=== PATIENT | female | born 2000 | race Hispanic/Latino ===

== ENCOUNTER 2020-04-26 22:57 | Outpatient (CLI) | payer MEDICAID ==
[2020-04-26 23:14] VITALS: BP 119/76
== END 2020-04-27 00:05 | disposition home or self-care (01) ==
LOC: TRG 22:57 → APU 23:04 → TRG 04-27 00:05
PROVIDERS: ATTEND Obstetrics & Gynecology
DX: Z34.83 Encounter for supervision of other normal pregnancy, third trimester (principal); Z3A.27 27 weeks gestation of pregnancy
CPT/HCPCS: 59025

== ENCOUNTER 2020-07-13 18:27 | Outpatient (CLI) | payer MEDICAID ==
[2020-07-13 19:03] VITALS: BP 128/74
== END 2020-07-13 22:22 | disposition home or self-care (01) ==
LOC: TRG 18:27 → APU 18:28 → TRG 22:22
PROVIDERS: ATTEND Obstetrics & Gynecology
DX: O47.1 False labor at or after 37 completed weeks of gestation (principal); Z3A.39 39 weeks gestation of pregnancy
CPT/HCPCS: 59025

== ENCOUNTER 2020-07-18 08:31 | Inpatient (IN) | payer MEDICAID ==
[2020-07-18] MEDS ORDERED: fentaNYL 100 MCG/2 ML INJ IV PRN (09:32)
[2020-07-18] MEDS ORDERED: BUTORPHANOL 2 MG/1 ML INJ IV PRN (09:32)
[2020-07-18] MEDS ORDERED: miSOPROStol 200 MCG TAB PR PRN (09:32)
[2020-07-18] MEDS ORDERED: MINERAL OIL 30 ML ORAL LIQD PO PRN (09:32)
[2020-07-18] MEDS ORDERED: ONDANSETRON 4 MG/2 ML INJ IV PRN ×2 (09:32→17:32)
[2020-07-18] MEDS ORDERED: ePHEDrine SULFATE 50 MG/1 ML INJ IV PRN (09:32)
[2020-07-18] MEDS ORDERED: NALOXONE 0.4 MG/1 ML INJ IV PRN (09:32)
[2020-07-18] MEDS ORDERED: ACETAMINOPHEN 325 MG TAB PO PRN (09:32)
[2020-07-18] MEDS ORDERED: METHYLERGONOVINE MALEATE 0.2 MG/ML VIAL IM PRN (09:32)
[2020-07-18] MEDS ORDERED: TERBUTALINE 1 MG/1 ML INJ SUB-Q PRN (09:32)
[2020-07-18] MEDS ORDERED: LACTATED RINGERS 1,000 ML IV SCH (09:45)
[2020-07-18] MEDS ORDERED: LIDOCAINE (2%) 20 MG/1 ML VIAL 20 ML MDV INFILTRATI ONE ×2 (10:00→13:46)
[2020-07-18] MEDS ORDERED: OXYTOCIN DRIP 30 UNITS/500 ML BAG IV SCH ×3 (10:00→17:32)
[2020-07-18 11:46] LABS: Hematocrit 37.4 % (30.3-42.9); Hemoglobin 12.7 gm/dl (10.1-14.3); Mean Corpuscular HGB Conc 34 % (30-34); Mean Corpuscular Volume 88 fl (79-97); Platelet Count 286 K/mm3 (140-440); Red Blood Count 4.27 M/mm3 (3.65-5.03); Red Cell Distribution Width 14.8 % (13.2-15.2)
[2020-07-18] MEDS ORDERED: KETOROLAC 30 MG/1 ML INJ IV ONE ×2 (13:00→14:00)
--- NOTE | 2020-07-18 13:12 | History and Physical Report ---
History of Present Illness Date of examination: 07/18/20 Date of admission: 07/18/20 09:06 Chief complaint: contractions History of present illness: 20 year old primigravida REUBEN 07/20/20 at 38w5d who presents with regular painful contractions and cervical dilation of 5 cm. She denies leakage of fluid or vaginal bleeding. She has had care at [facility] since 14 wks complicated by obesity, glucose intolerance with a normal 3 hr GTT, and chlamydia treated with a negative test of cure. She is GBS negative. Past History Past Medical History: no pertinent history Past Surgical History: other (Ear tubes ) OTHER SPORTS OFFICIAL History: chlamydia (treated with negative test of cure ) Family/Genetic History: diabetes, stroke, cancer Social history: no significant social history - Obstetrical History Expected Date of Delivery: 07/20/20 Actual Gestation: 39 Week(s) 5 Day(s) : 1 Medications and Allergies Allergies Allergy/AdvReac Type Severity Reaction Status Date / Time No Known Allergies Allergy Unverified 04/26/20 23:25 Active Meds: Active Medications Acetaminophen (Tylenol) 650 mg PO Q4H PRN PRN Reason: Pain, Mild (1-3) Butorphanol Tartrate (Stadol) 2 mg IV Q2H PRN PRN Reason: Pain , Severe (7-10) Ephedrine Sulfate (Ephedrine Sulfate) 10 mg IV Q2M PRN PRN Reason: Hypotension Fentanyl (Sublimaze) 100 mcg IV Q2H PRN PRN Reason: Pain,Severe (7-10) LABOR PAIN Last Admin: 07/18/20 12:33 Dose: 100 mcg Documented by: Oxytocin/Sodium Chloride (Pitocin/Ns 30 Unit/500ml) 30 units in 500 mls @ 2 mls/hr IV TITR JULIA; Protocol Lactated Ringer's (Lactated Ringers) 1,000 mls @ 125 mls/hr IV DIRECT JULIA Oxytocin/Sodium Chloride (Pitocin/Ns 30 Unit/500ml) 30 units in 500 mls @ 40 mls/hr IV TITR JULIA; Protocol Methylergonovine Maleate (Methergine) 0.2 mg IM ONCE PRN PRN Reason: Uterine Bleeding Mineral Oil (Mineral Oil) 30 ml PO QHS PRN PRN Reason: Constipation Misoprostol (Cytotec) 800 mcg OR ONCE PRN PRN Reason: Uterine Bleeding Naloxone HCl (Naloxone) 0.1 mg IV Q2MIN PRN PRN Reason: Res Rate </= 8 or 02 SAT < 92% Ondansetron HCl (Zofran) 4 mg IV Q8H PRN PRN Reason: Nausea And Vomiting Terbutaline Sulfate (Brethine) 0.25 mg SUB-Q ONCE PRN PRN Reason: Hyperstimulation/Hypertonicity Review of Systems All systems: negative - Vital Signs Vital signs: Vital Signs Temp Resp BP 98.6 F 18 134/85 07/18/20 11:02 07/18/20 11:02 07/18/20 11:02 Temp Pulse Resp BP Pulse Ox 98.6 F 88 18 134/85 07/18/20 11:02 07/18/20 11:24 07/18/20 12:33 07/18/20 11:24 - Physical Exam Breasts: Positive: deferred Abdomen: Positive: soft (obese, gravid ) Uterus: Positive: enlarged (gravid ) Extremities: Positive: normal - Obstetrical FHR: auscultation normal Uterine Contraction Monitor Mode: External Cervical Dilatation: 9 Cervical Effacement Percentage: 100 station: -1 Uterine Contraction Pattern: Regular Uterine Tone Measurement Phase: Resting Uterine Contraction Intensity: Strong/Firm Results Result Diagrams: 07/18/20 11:00 Abnormal lab results 07/18/20 Range/Units 11:00 WBC 14.2 H (4.5-11.0) K/mm3 All other labs normal. Assessment and Plan A: IUP at 39w5d Active labor GBS Negative Obesity Chlamydia treated with negative test of cure P: Admit to labor and delivery Routine intrapartum care
[2020-07-18] MEDS ORDERED: KETOROLAC 30 MG/1 ML INJ ONE (13:53)
--- NOTE | 2020-07-18 14:07 | Procedure Note ---
OB Delivery Note - Delivery Date of Delivery: 07/18/20 Surgeon: JORDY JADE Estimated blood loss: other (400 mL) - Vaginal Delivery presentation: vertex Delivery position: OA Delivery induction: none Delivery monitor: external FHT, external uterine Route of delivery: Delivery placenta: spontaneous Delivery cord: nuchal cord Episiotomy: none Delivery laceration: 2nd degree, other (Bilateral periurethral ) Delivery repair: vicryl Anesthesia: local, intravenous - Infant A at 1 minute: 8 at 5 minutes: 9 Gender: Female (2802g (6lb 3oz) @ 1318 pm)
[2020-07-18] MEDS ORDERED: diphenhydrAMINE 25 MG CAP PO PRN (17:32)
[2020-07-18] MEDS ORDERED: MAGNESIUM HYDROXIDE (MOM) ORAL LIQD UDC PO PRN (17:32)
[2020-07-18] MEDS ORDERED: HYDROcodone/ACETAMINOPHEN 5-325 MG TAB PO PRN (17:32)
[2020-07-18] MEDS ORDERED: WITCH HAZEL/ GLYCERIN PAD TP PRN (17:32)
[2020-07-18] MEDS ORDERED: LANOLIN/ZINC/DIMETHICONE (LANSINOH) 7 GM TP PRN ×2 (17:32)
[2020-07-18] MEDS ORDERED: PROMETHAZINE 25 MG TAB PO PRN (17:32)
[2020-07-18] MEDS ORDERED: PROMETHAZINE 25 MG RECT SUPP PR PRN (17:32)
[2020-07-18] MEDS ORDERED: BENZOCAINE/MENTHOL 20/0.5% TOP SPRAY 56 GM TP PRN (17:32)
[2020-07-18] MEDS ORDERED: IBUPROFEN 600 MG TAB PO SCH (18:00)
[2020-07-18] MEDS ORDERED: FERROUS SULFATE 325 MG TAB PO SCH (22:00)
[2020-07-19 02:07] LABS: Hematocrit 31.8 % (30.3-42.9); Hemoglobin 10.7 gm/dl (10.1-14.3)
[2020-07-19] MEDS ORDERED: DIPHtheria,PERTUSSIS(ACELL),TETANUS VACCINE/PF 0.5 ML VIAL IM ONE (06:00)
--- NOTE | 2020-07-19 07:46 | Progress Note ---
Assessment and Plan - Patient Problems (1) Spontaneous vaginal delivery Current Visit: Yes Status: Acute Plan to address problem: Patient doing well Discharge home Subjective - Subjective Date of service: 07/19/20 Interval history: The patient is without any significant complaints. She reports that her lochia is decreasing. Patient reports: appetite normal, voiding normally, pain well controlled [place]: doing well Objective - Vital Signs Latest vital signs: Vital Signs Temp Pulse Resp BP BP Pulse Ox 07/19/20 00:10 98.9 F 119 H 18 106/51 94 07/18/20 17:07 98.8 F 109 H 26 H 122/68 90 07/18/20 16:47 95 H 123/88 07/18/20 14:00 101 H 18 163/81 07/18/20 13:29 103 H 148/76 07/18/20 12:33 18 07/18/20 11:24 88 134/85 07/18/20 11:02 98.6 F 18 134/85 Intake and Output 07/18/20 07/19/20 07/19/20 22:59 06:59 14:59 Intake Total 240 Output Total 900 820 Balance -660 -820 Intake: Oral 240 Output: Urine 900 820 Void 900 820 Other: Total, Intake Amount 240 Total, Output Amount 900 600 # Voids Void 1 1 - Exam Uterus: Present: normal, firm - Labs Labs: Abnormal lab results 07/18/20 Range/Units 11:00 WBC 14.2 H (4.5-11.0) K/mm3
--- NOTE | 2020-07-19 07:47 | Discharge Summary ---
Providers - Providers Date of Admission: 07/18/20 09:06 Date of discharge: 07/19/20 Attending physician: JORDY RILEY 07/18/20 17:32 Consult to [employer] [CONS] Routine Reason For Exam: assistance with , SNS Primary care physician: APRIL ROCHA Hospitalization Reason for admission: active labor Delivery: Discharge diagnosis: IUP at term delivered Hospital course: Patient admitted in active labor. The patient had a spontaneous vaginal delivery. course was uneventful. Condition at discharge: Good Disposition: DC-01 TO HOME OR SELFCARE - Discharge Diagnoses (1) Spontaneous vaginal delivery Status: Acute Plan - Discharge Medications Prescriptions: Ibuprofen [Motrin] 800 mg PO Q8HR PRN #30 tablet PRN Reason: Pain , Severe (7-10) HYDROcodone/APAP 5-325 [[place] 5/325] 1 each PO Q6HR PRN #15 tablet PRN Reason: Pain - Provider Discharge Summary Activity: no sex for 6 weeks, no heavy lifting 4 weeks, no strenuous exercise Diet: routine Instructions: routine Additional instructions: [] Smoking cessation referral if applicable(refer to patient education folder for contact #) [] Refer to [facility] Booklet Call your doctor immediately for: * Fever > 100.5 * Heavy vaginal bleeding ( >1 pad per hour) * Severe persistent headache * Shortness of breath * Reddened, hot, painful area to leg or breast * Schedule visit as scheduled with Dr. Riley - Follow up plan
[2020-07-19] MEDS ORDERED: PRENATAL VIT27-FE FUMARATE-FOLIC ACID VIT TAB PO SCH (10:00)
[2020-07-19] MEDS ORDERED: MEASLES, MUMPS & RUBELLA 12,500 UNIT/0.5 ML VACCINE SUB-Q ONE (14:07)
[2020-07-19 16:48] VITALS: BP 126/70
== END 2020-07-19 17:45 | disposition home or self-care (01) | DRG 775 ==
LOC: TRG 08:31 → APU 08:32 → TRG 09:05 → LD 09:06 → OB 17:57
PROVIDERS: ADMIT Obstetrics & Gynecology; ATTEND Obstetrics & Gynecology
PROC: 10E0XZZ Delivery of Products of Conception, External Approach (ICD-10-PCS; principal; 2020-07-18)
PROC: 0KQM0ZZ Repair Perineum Muscle, Open Approach (ICD-10-PCS; 2020-07-18)
PROC: 0UQMXZZ Repair Vulva, External Approach (ICD-10-PCS; 2020-07-18)
PROC: 3E0234Z Introduction of Serum, Toxoid and Vaccine into Muscle, Percutaneous Approach (ICD-10-PCS; 2020-07-19)
PROC: 3E0134Z Introduction of Serum, Toxoid and Vaccine into Subcutaneous Tissue, Percutaneous Approach (ICD-10-PCS; 2020-07-19)
DX: O69.81X0 Labor and delivery complicated by cord around neck, without compression, not applicable or unspecified (principal); O99.214 Obesity complicating childbirth; Z20.828 Contact with and (suspected) exposure to other viral communicable diseases; E66.9 Obesity, unspecified; O70.1 Second degree perineal laceration during delivery; Z3A.39 39 weeks gestation of pregnancy; Z37.0 Single live birth; Z23 Encounter for immunization; Z83.3 Family history of diabetes mellitus; Z80.9 Family history of malignant neoplasm, unspecified; Z82.3 Family history of stroke; O71.82 Other specified trauma to perineum and vulva
CPT/HCPCS: 36415; 59025; 85014; 85018; 85027; 86592; 86850; 86900; 86901; G0378; J1885; J3010; J7120; U0003